=== PATIENT | male | born 1975 | race Caucasian/White ===

== ENCOUNTER 2023-05-25 15:48 | Outpatient (AMB) | payer OTHER, SELFPAY ==
[2023-05-25 15:51] VITALS: BP 122/76; PULSE 72; O2SAT 98; BMI 39.9
--- NOTE | 2023-05-25 15:51 | A.OFFPC_ITS ---
Vital Signs 05/25/23 15:51 Height 5 ft 10 in Weight 278 lb BMI 39.9 BP 122/76 Blood Pressure Location Rt brachial Position Sitting Pulse 72 Pulse Source Pulse Oximeter Pulse Oximetry (%) 98 Oxygen Delivery Method Room Air Intake Visit Reasons: Re establish care Intake Note: Pt is here today for PE. Allergies No Known Allergies [No Known Allergies*] Allergy (Unverified 05/25/23 15:53) Medication List - Last Reconciled 05/25/23 by DOUGLAS Salcedo-LILLIAM fluticasone propionate 50 mcg/actuation 1 spray intranasal DAILY Tobacco use date assessed: 05/25/23 Dental Screening Dental Screen Date: 05/25/23 Did you have a dental visit in the last 12 months?: Yes Did you have a dental problem in the last 6 months where you did not have access to dental care?: No Was dental information given to patient?: Patient has dentist HPI Re establish care HPI Details Pt is here for a PE. Will order labs. Due for colon screen, will refer to GI. Pt c/o left knee pain. He reports pain to the inside of his knee. Pt reports the most pain with bending or pivoting. Will order XR. [facility] Medical History (Updated 05/25/23 @ 16:24 by DOUGLAS Salcedo-LILLIAM) Fatty liver Family History Father Heart attack Mother No problems noted. Social History Housing: House Patient Tobacco Use Status: Never used Tobacco e-Cigarette/Vaping Use: Currently Using Current occupational status: employed Cognitive needs: No Hearing needs: No Vision needs: Yes Questionnaire PHQ-9 Over the last 2 weeks, how often have you been bothered by any of the following problems? 1. Little interest or pleasure in doing things: not at all 2. Feeling down, depressed, or hopeless: not at all 3. Trouble falling or staying asleep, or sleeping too much: not at all 4. Feeling tired or having little energy: not at all 5. Poor appetite or overeating: not at all 6. Feeling bad about yourself - or that you are a failure or have let yourself or your family down: not at all 7. Trouble concentrating on things, such as reading the newspaper or watching television: not at all 8. Moving or speaking so slowly that other people could have noticed. Or the opposite - being so fidgety or restless that you have been moving around a lot more than usual: not at all 9. Thoughts that you would be better off or of hurting yourself in some way: not at all Total score: 0 Depression Screening Interpretation: Negative Depression Screening Done: Yes Source: Developed by Drs. Stef Conner, Kate Moreira, Carlos Johnson and colleagues, with an educational adryan from [employer]. Thrive Questionnaire Date Thrive assessed: 05/25/23 I am a: Patient What is your living situation today?: I have a steady place to live Within the past 12 months, did the food you bought not last and you didn't have the money to get more?: Never true Within the past 12 months, did you worry whether your food would run out before you got money to buy more?: Never true Do you have trouble paying for medicines?: No Do you have trouble getting transportation to medical appointments?: No Do you have trouble paying your heating and electricity bill?: No Do you have trouble taking care of your child, family member or friend?: No Do you have trouble with day-to-day activities such as bathing, preparing meals, shopping, managing finances, etc.?: No Are you currently unemployed and looking for a job?: No Are you interested in more education?: No Please select the resources that you would like help with: None AUDIT C Alcohol Use Questionnaire (AUDIT-C) 1. How often do you have a drink containing alcohol?: Monthly or less 2. How many drinks containing alcohol do you have on a typical day when you are drinking?: 1 or 2 3. How often do you have six or more drinks on one occasion?: Never Total Score: 1 JASON-7 AMB Questionnaire JASON-7 Date JASON - 7 assessed: 05/25/23 Feeling nervous, anxious, or on edge: 0 = Not at all Not being able to stop or control worryin = Not at all Worrying too much about different things: 0 = Not at all Trouble relaxin = Not at all Being so restless that it is hard to sit still: 0 = Not at all Becoming easily annoyed or irritable: 1 = Several days Feeling afraid as if something awful might happen: 0 = Not at all Total JASON-7 score (0-4 normal; 5-9 mild; 10-14 moderate; 15-21 severe): 1 Source: Developed by Drs. Stef Conner, Kate Moreira, Carlos Jhonson and colleagues, with an educational adryan from [employer]. Review of Systems Const Denies chills and Denies fever(s) Eyes Denies blurry vision ENT Denies vertigo, Denies dizziness and Denies sore throat Card Denies chest pain at rest, Denies chest pain with activity, Denies diaphoresis, Denies dyspnea and Denies dyspnea on exertion Resp Denies cough, Denies dyspnea, Denies dyspnea on exertion and Denies wheezing GI Denies abdominal pain, Denies melena, Denies hematochezia, Denies constipation, Denies diarrhea and Denies loose stools Denies hematuria Musc Denies numbness and Denies tingling Skin/Breast Denies lesions Neuro Denies vertigo, Denies dizziness, Denies numbness and Denies tingling Psych Denies anxiety, Denies depression, Denies homicidal ideation, Denies suicidal ideation and Denies other (substance abuse) Aller/Immun Denies wheezing Physical exam (Primary Care) Vital Signs: Last Vital Signs Pulse 72 05/25/23 15:51 BP 122/76 05/25/23 15:51 Pulse Ox 98 05/25/23 15:51 Oxygen Delivery Method Room Air 05/25/23 15:51 BMI result Body Mass Index 39.9 Tobacco/Smoking Status: Tobacco use Status Tobacco use date assessed 05/25/23 05/25/23 15:58 Patient Tobacco Use Status Never used Tobacco 05/25/23 15:58 e-Cigarette/Vaping Use Currently Using 05/25/23 15:58 PHQ-9: PHQ-9 Score PHQ-9: Total score 0 05/25/23 16:38 Depression Screening Interpretation: Negative Thrive Assessment: Date of Thrive Assessment Date Thrive assessed 05/25/23 05/25/23 16:38 Const General: cooperative Nutritional Appearance: obese Orientation/consciousness: patient oriented x3 HENMT Head: Yes normal to inspection, Yes normocephalic and Yes atraumatic Ears: TM's normal bilaterally Eyes General: appearance normal, both eyes and all related structures Alignment and Position: alignment normal and position normal Neck Neck: Yes normal visual inspection and Yes no lymphadenopathy Thyroid: Thyroid normal Resp Effort & Inspection: normal respiratory effort Auscultation: clear to auscultation bilaterally Cardio Rate: regular rate Rhythm: regular rhythm Heart sounds: S1 normal heart sound present, S2 normal heart sound present and no murmurs GI Palpation (GI): Soft to palpation and nontender Auscultation: normal bowel sounds Male General Exam: Yes normal external exam Penis: normal penis Scrotum: scrotum normal, testes descended bilaterally and no inguinal hernias Testes: no testicular mass Skin Rashes: no rashes Neuro General: patient oriented x3, moves all extremities, no focal motor deficits and deep tendon reflexes 2+ bilaterally Romberg Test: Negative Extrem Other: left knee: - mcmurrays, - lachmans Psych Appearance: grossly normal Mental Status: mental status grossly normal Speech and movement: Normal speech and movement present Affect: normal affect Attitude: cooperative Thought process: Normal thought process present Thought content: Normal thought content present Insight: Good insight present (Psych) Judgement: Good judgement present (Psych) Assessment and Plan Assessment & Plan (1) Screening for colon cancer: Code(s): Z12.11 - Encounter for screening for malignant neoplasm of colon Plan: Referred to GI (2) Physical exam: Code(s): Z00.00 - Encounter for general adult medical examination without abnormal findings Plan: Labs ordered (3) Left knee pain: Code(s): M25.562 - Pain in left knee Plan: XR ordered Plan The patient agreed to the use of a medical records custodian for this encounter. Scribed for RUSSEL GarciaBC by Maddi Sepulveda medical records custodian, on 05/25/2023 at 16:15 EST. Orders: Orders Complete Blood Count Auto Diff Today Z00.00 - Encounter for general adult medical examination without abnormal findings UA CC w/rflx Micro + Cult Today Z00.00 - Encounter for general adult medical examination without abnormal findings Lipid Panel Today Z00.00 - Encounter for general adult medical examination without abnormal findings XR knee LT 2V Today M25.562 - Pain in left knee Comprehensive Stewardson. Panel Fast Today Z00.00 - Encounter for general adult medical examination without abnormal findings TSH reflex Free T4 Today Z00.00 - Encounter for general adult medical examination without abnormal findings Referrals Gastroenterology Referral Z12.11 - Encounter for screening for malignant neoplasm of colon Coding Level of Care Code New Pt Prev Care 40-64y(46818) Diagnoses Screening for colon cancer Z12.11 Physical exam Z00.00 Left knee pain M25.562
== END 2023-05-25 16:44 | disposition home or self-care (01) ==
PROVIDERS: PCP Nurse Practitioner Family; Visit Provider Nurse Practitioner Family
DX: Z12.11 Encounter for screening for malignant neoplasm of colon (principal); Z00.00 Encounter for general adult medical examination without abnormal findings; M25.562 Pain in left knee
CPT/HCPCS: 99386

== ENCOUNTER 2023-06-19 11:57 | Outpatient (REF) | payer OTHER, SELFPAY ==
--- NOTE | ~2023-06-19 | XR_ITS ---
EXAMINATION: XR KNEE, LEFT CLINICAL INFORMATION: Pain in left knee. COMPARISON: None available. TECHNIQUE: 2 views of the left knee. FINDINGS: Mild medial joint space narrowing. Trace joint effusion. Tiny tricompartmental osteophytes. Small quadriceps enthesophyte. XR/XR knee LT 2V IMPRESSION: Mild degenerative changes.
== END 2023-06-19 11:58 | disposition home or self-care (01) ==
LOC: HO.HMGCX 11:57
PROVIDERS: PCP Nurse Practitioner Family; Visit Provider Nurse Practitioner Family
DX: M25.562 Pain in left knee (principal)
CPT/HCPCS: 73560

== ENCOUNTER 2023-08-04 15:14 | Outpatient (AMB) | payer OTHER, SELFPAY ==
--- NOTE | 2023-08-04 15:22 | A.OFFVIS_ITS ---
Intake Vital Signs 08/04/23 15:26 Height 5 ft 10 in Weight 287 lb 0.67 oz BMI 41.2 BP 144/79 H Blood Pressure Location Lt brachial Position Sitting Pulse 66 Intake Visit Reasons: Colonoscopy screening Intake Note: Patient presents to in office visit today as a new patient for colonoscopy. CC:Patient with hx of diverticulosis. Allergies No Known Allergies [No Known Allergies*] Allergy (Verified 08/04/23 15:29) HPI Colonoscopy screening HPI Details 48-year-old male here for preprocedural meeting to discuss a screening colonoscopy. He is referred by Artem Trejo of [facility] primary care. PMX Fatty liver Left knee pain HISTORY of sigmoid diverticulitis with microperforation * SURGICAL HISTORY [place] teeth * ALLERGIES: NKDA * [employer] LABS: none since 2019 TODAY'S VISIT Will need to go for labs, Needs Wednesday appt. This will be his first colonoscopy. He denies any bowel or upper GI problems currently. He denies any cardiac or respiratory problems. No ID problems. There is no known FHX of crc or polyps. [facility] Medical History Perforation of sigmoid colon due to diverticulitis Fatty liver Surgical History No pertinent past surgical history Family History Father Heart attack Mother No problems noted. Social History Housing: House Patient Tobacco Use Status: Never used Tobacco e-Cigarette/Vaping Use: Currently Using Current occupational status: employed Cognitive needs: No Hearing needs: No Vision needs: Yes Review of Systems Const Denies fatigue, Denies fever(s), Denies night sweats, Denies poor appetite and Denies weight loss ENT Reports Normal hearing present, Denies dental pain, Denies dysphagia, Denies hearing loss, Denies mouth pain, Denies odynophagia, Denies throat swelling, Denies tongue swelling and Reports other (Dentition adequate) Card Reports no additional complaints Resp Reports no additional complaints GI Details: Denies abdominal pain, Denies melena, Denies bloating, Denies hematochezia, Denies constipation, Denies GI cramping, Denies dysphagia, Denies excessive flatus, Denies early satiety, Denies heartburn, Denies diarrhea, Denies nausea, Denies odynophagia, Denies vomiting and Denies hematemesis Skin/Breast Denies pruritus, Denies lesions, Denies rash and Denies jaundice Neuro Reports Normal hearing present and Denies Abnormal speech present Endo Denies fatigue Aller/Immun Denies throat swelling and Denies tongue swelling Physical Exam Vital Signs: Last Vital Signs Pulse 66 08/04/23 15:26 BP 144/79 H 08/04/23 15:26 BMI result Body Mass Index 41.2 Const General: cooperative, no acute distress, well developed and well groomed Nutritional Appearance: well nourished and obese centrally obese Orientation/consciousness: oriented to person, oriented to place and oriented to time Limitations: No language barrier HEENT Head: Yes normocephalic and Yes atraumatic Eyes General: appearance normal, both eyes and all related structures Pupils: Equal, round and reactive pupils present Neck Neck: Yes normal visual inspection and Yes no lymphadenopathy Thyroid: Thyroid normal Resp Effort & Inspection: normal respiratory effort and able to speak in complete sentences Auscultation: clear to auscultation bilaterally Cardio Rate: regular rate Rhythm: regular rhythm Heart sounds: Normal, physiologic split S2 sound present Peripheral pulses: radial pulses present and posterior tibial pulses present GI Inspection: No distended, Yes Abdominal panniculus present, Yes obesity and Yes striae Palpation (GI): Soft to palpation, nontender, no guarding, not rigid and No hepatosplenomegaly present Percussion: Yes normal to percussion Auscultation: normal bowel sounds Rectal Exam - Male: Yes deferred Skin General skin exam: no rashes or lesions noted, turgor normal, skin not dry, no jaundice, No spider nevi and no striae Rashes: no rashes Nails: normal Neuro General: oriented to person, oriented to place and oriented to time Cranial nerves: Yes Equal, round and reactive pupils present and Yes Normal hearing present Speech: No Abnormal speech present Extrem General: Yes normal to inspection, No clubbing, No cyanosis and No edema Psych Appearance: grossly normal and well kempt Mental Status: mental status grossly normal Speech and movement: Normal speech and movement present Affect: normal affect Attitude: cooperative Thought process: Normal thought process present and not confabulating Thought content: Normal thought content present Insight: Good insight present (Psych) Judgement: Good judgement present (Psych) Assessment & Plan Assessment & Plan (1) Pre-op examination: Code(s): Z01.818 - Encounter for other preprocedural examination Plan Will need to go for labs, Needs Wednesday appt. This will be his first colonoscopy. He denies any bowel or upper GI problems currently. He denies any cardiac or respiratory problems. No ID problems. There is no known FHX of crc or polyps. Orders: Orders Comprehensive Met. Panel Today Z01.818 - Encounter for other preprocedural examination Complete Blood Count Auto Diff Today Z01.818 - Encounter for other preprocedural examination Colonoscopy - GI Use Only Today Z01.818 - Encounter for other preprocedural examination Medications: New peg 3350-electrolytes 236-22.74-6.74 -5.86 gram (Golytely) until fecal effluent is clear; do not exceed a total volume of 2,000 mL 240 mL PO Q10M 4,000 mL 0RF 1 day Z12.11 - Encounter for screening for malignant neoplasm of colon bisacodyl (Dulcolax (bisacodyl)) 10 mg (2 x 5 mg) PO BEDTIME 4 tabs 0RF 2 days Coding Level of Care Code New Pt Level 3 (33986) Diagnoses Pre-op examination Z01.818
[2023-08-04 15:26] VITALS: BP 144/79; PULSE 66; BMI 41.2
== END 2023-08-04 16:01 | disposition home or self-care (01) ==
PROVIDERS: PCP Nurse Practitioner Family; Referring Provider Nurse Practitioner Family; Visit Provider Nurse Practitioner
DX: Z01.818 Encounter for other preprocedural examination (principal)
CPT/HCPCS: 99203

== ENCOUNTER → 2023-08-04 15:14 | Outpatient (BNVA) | payer OTHER, SELFPAY | PROVIDERS: PCP Nurse Practitioner Family; Referring Provider Nurse Practitioner Family; Visit Provider Nurse Practitioner | DX: Z01.818 Encounter for other preprocedural examination (principal) | CPT/HCPCS: 99202 ==

== ENCOUNTER 2023-08-07 09:33 | Outpatient (REF) | payer OTHER, SELFPAY ==
[2023-08-07 11:06] LABS: MANUAL DIFF FLAG NO
[2023-08-07 11:15] LABS: Basophils Absolute Auto 0.1 X10*3/uL (0.0-0.2); Basophils Percent Auto 1.2 % (0-2); Eosinophils Absolute Auto 0.5 X10*3/uL (0.0-0.4); Hematocrit 43.5 % (42.0-52.0); Hemoglobin 14.3 g/dl (14.0-18.0); Imm Gran Abs Auto 0.03 X10*3/uL (0.00-0.03); Imm Gran Pct Auto 0.3 % (0.0-0.4); Lymphocytes Absolute Auto 2.7 X10*3/uL (1.2-4.9); Lymphocytes Percent Auto 29.7 % (20-40); Mean Corpuscular HGB Conc 32.9 g/dl (31.0-36.0); Mean Corpuscular Hemoglobin 29.7 pg (27.0-33.0); Mean Corpuscular Volume 90.4 fL (80.0-98.0); Mean Platelet Volume 10.6 fL (9.4-12.4); Monocytes Absolute Auto 0.6 X10*3/uL (0.1-1.2); Monocytes Percent Auto 6.4 % (2-11); Neutrophils Absolute Auto 5.2 x10*3/uL (2.0-8.3); Neutrophils Percent Auto 57.4 % (45-73); Platelet Count 323 X10*3/uL (160-400); Red Blood Count 4.81 X10*6/uL (4.60-5.80); Red Cell Distribution Width 13.4 % (11.0-16.0); White Blood Count 9.1 X10*3/uL (4.8-10.8)
[2023-08-07 11:27] LABS: Alanine Aminotransferase 18 U/L (0-40); Albumin Level 4.3 g/dL (3.5-5.0); Alkaline Phosphatase 69 U/L (39-117); Anion Gap 12 (12-20); Aspartate Amino Transferase 15 U/L (5-37); Bilirubin Total 0.4 mg/dL (0.0-1.0); Blood Urea Nitrogen 15 mg/dL (9-16); Carbon Dioxide 25 mmol/L (22-29); Chloride 107 mmol/L (96-108); Cholesterol 223 mg/dL (<200); Estimated Glomerular Filt Rate > 60; Glucose Fasting 97 mg/dL (60-99); Glucose Random 97 mg/dL (60-115); HDL Cholesterol 53 mg/dL (>40); LDL Cholesterol Calculated 160 mg/dL (<100); Potassium 4.2 mmol/L (3.3-5.1); Sodium 140 mmol/L (135-145); Total Protein 7.3 g/dL (6.5-8.0); Triglycerides 50 mg/dL (<150)
[2023-08-07 11:44] LABS: TSH reflex Free T4 3.36 uIU/mL (0.32-4.0)
== END 2023-08-07 09:34 | disposition home or self-care (01) ==
LOC: HO.HMGCLDS 09:33
PROVIDERS: Nurse Practitioner; PCP Nurse Practitioner Family; Visit Provider Nurse Practitioner Family
DX: Z01.818 Encounter for other preprocedural examination (principal)
CPT/HCPCS: 36415; 80053; 80061; 84443; 85025

== ENCOUNTER 2023-10-27 16:00 | Outpatient (RCR) | payer OTHER, SELFPAY ==
--- NOTE | 2023-09-15 17:25 | MHC.PT.EP ---
[facility] [place] Office [place] Office [place] Office [address] [phone] F: [phone] F: [phone] F: [phone] F: [phone] Physical Therapy Plan of Care Date of Evaluation: 09/15/23 Date of Surgery: Diagnosis: LEFT knee pain Assessment: Patient is a pleasant 48 y.o. male who is referred to PT by DOUGLAS Garcia with Dx of LEFT knee pain. His x-ray imaging shows, mild medial joint space narrowing. Trace joint effusion. Tiny tricompartmental osteophytes. Small quadriceps enthesophyte. Patient impairments include weakness in L glutes, tightness in L ankle DF, antalgic gait with compensations, limited ROM in knee. Patient current functional limitations are Prolonged walking, walking outdoors, prolonged standing, pain lying on his side, stair use. Patient will benefit from skilled PT to address aforementioned impairments and functional limitations to meet established goals. Frequency and Duration: The patient will be seen 1-2x/week for 4 weeks Short Term Goals: 2 weeks Patient demonstrates consistency and independence with HEP to self manage symptoms. Patient demonstrates increased L ankle DF 5 degrees to normalize gait pattern. Restrictive Preparation Operator Goals: 4 weeks Patient presents with increased glute med strength 5/5 to be able to perform sit to stand with good lowering and control without pain. Patient presents with increased L knee flexion and extension 5/5 to be able to perform reciprocal stairs. Treatment Plan: Modalities to reduce pain, spasms and effusion. Manual therapy to restore motion and function. Therapeutic exercise to improve strength and flexibility. Neuromuscular re-education for posture and balance. Therapeutic activities to return to functional activities of daily living. Electronically signed by: Verónica Peterson, PT, DPT Please sign and return to therapist. Thank you for your referral.
--- NOTE | 2023-12-09 09:44 | MHC.PT.DC ---
[facility] [place] Office [place] Office [place] Office [address] [phone] F: [phone] F: [phone] F: [phone] F: [phone] Physical Therapy Discharge Report Diagnosis: LEFT knee pain Date of Surgery: Date of Evaluation: 09/15/23 Date of Discharge: 12/09/23 Treatments to Date: 5 Cancellations to Date: 3 No Shows to Date: 0 Discharge Status: Improved Function Independent with HEP Patient Elected to Stop Discharge Summary: Valente was seen for 5 visits and demonstrated independence with HEP and noted improvement in his knee pain. He is discharged because he cancelled his last scheduled PT visits. His last visit on 10/27/23 the assessment reads, He reports he did get orthotics for his shoes for arch support but did not do a wearing schedule to break them in. Unsure if this could've caused more pain. He shows weakness still in glute on L as he has Trendelenberg gait with trunk compensation. He reports relief in knee sxs after doing exercise program focused on glutes. He reports wanting to commit to consistent HEP and will be seen 1x/week in 2 weeks to discuss progress. Electronically signed by: Verónica Peterson, PT, DPT Please sign and return to therapist. Thank you for your referral.
== END 2023-12-09 09:44 | disposition home or self-care (01) ==
LOC: HO.PT 16:00
PROVIDERS: PCP Nurse Practitioner Family; Visit Provider Nurse Practitioner Family
DX: M25.562 Pain in left knee (principal)
CPT/HCPCS: 97110; 97161; 97530

== ENCOUNTER 2023-11-27 07:21 | Outpatient (REF) | payer OTHER, SELFPAY ==
[2023-11-27 11:27] LABS: Alanine Aminotransferase 19 U/L (0-40); Albumin Level 4.3 g/dL (3.5-5.0); Alkaline Phosphatase 62 U/L (39-117); Anion Gap 14 (12-20); Aspartate Amino Transferase 18 U/L (5-37); Bilirubin Total 0.5 mg/dL (0.0-1.0); Blood Urea Nitrogen 16 mg/dL (9-16); Calcium 8.9 mg/dL (8.4-10.2); Carbon Dioxide 25 mmol/L (22-29); Chloride 108 mmol/L (96-108); Cholesterol 142 mg/dL (<200); Estimated Glomerular Filt Rate > 60; Glucose Fasting 99 mg/dL (60-99); HDL Cholesterol 47 mg/dL (>40); LDL Cholesterol Calculated 83 mg/dL (<100); Potassium 4.7 mmol/L (3.3-5.1); Sodium 142 mmol/L (135-145); Total Protein 7.2 g/dL (6.5-8.0); Triglycerides 64 mg/dL (<150)
== END 2023-11-27 07:22 | disposition home or self-care (01) ==
LOC: HO.HMGCLDS 07:21
PROVIDERS: PCP Nurse Practitioner Family; Visit Provider Nurse Practitioner Family
DX: E78.5 Hyperlipidemia, unspecified (principal)
CPT/HCPCS: 36415; 80053; 80061

== ENCOUNTER 2024-05-29 15:47 | Outpatient (AMB) | payer OTHER, SELFPAY ==
[2024-05-29 15:50] VITALS: BP 138/78; PULSE 73; O2SAT 98; BMI 41.3
--- NOTE | 2024-05-29 15:50 | A.OFFPC_ITS ---
Vital Signs 05/29/24 15:50 Height 5 ft 10 in Weight 288 lb BMI 41.3 BP 138/78 Blood Pressure Location Rt brachial Position Sitting Pulse 73 Pulse Source Pulse Oximeter Pulse Oximetry (%) 98 Oxygen Delivery Method Room Air Intake Visit Reasons: PE Intake Note: pt is here for PE Facilitator Required: No Accompanied by: Self / Same As Patient Allergies No Known Allergies [No Known Allergies*] Allergy (Verified 05/29/24 16:26) Medication List - Last Reconciled 05/29/24 by DOUGLAS Salcedo-LILLIAM atorvastatin 10 mg PO BEDTIME fluticasone propionate 50 mcg/actuation 1 spray intranasal DAILY Tobacco use date assessed: 05/29/24 Dental Screening Dental Screen Date: 05/29/24 Did you have a dental visit in the last 12 months?: Yes Did you have a dental problem in the last 6 months where you did not have access to dental care?: No Was dental information given to patient?: Patient has dentist HPI PE HPI Details History of Present Illness The patient is a 49-year-old male presenting with bilateral knee pain, more severe in the right knee than the left. The left knee was previously evaluated and imaging displayed degenerative changes consistent with osteoarthritis. The patient underwent a course of physical therapy which provided partial relief of symptoms. The worsening condition of the right knee has prompted further evaluation, with a plan to obtain additional imaging studies. The patient reports contacting a gastroenterology office to complete a colon cancer screening; however, the appointment has not been scheduled. The patient demonstrates an interest in preventive health, as evidenced by his attempts to adhere to recommended screenings such as the colonoscopy. Overall, during the review of systems, the patient denies any associated systemic symptoms such as edema, chest pain, shortness of breath, or gastrointestinal and neurological symptoms. Health Maintenance - Attempted to obtain colonoscopy for co lorectal cancer screening, sent a note to GI to contact pt. - Underwent physical therapy for managem ent of knee osteoarthritis. Social History Review of Systems - Cardiovascular: Denies chest pain. - Respiratory: Denies shortness of breat h. - Gastrointestinal: Denies constipation and diarrhea. - Neurologic: Denies numbness and tingli ng. - Psychiatric: Denies anxiety, depressio n, suicidal ideation, and homicidal ideation. - Genitourinary: Denies urinary symptoms . Physical Exam General: Cooperative, healthy appearing, comfortable, no acute distress and well developed, obese Orientation: Patient oriented x3 Limitations: No limitations Head: Normal to inspection Ears: Hearing grossly normal bilaterally Nose: Normal external nose present Face and sinus: Normal facial exam Eyes: Appearance normal, both eyes and all related structures Neck: Normal visual inspection and Yes full ROM Respiratory: Normal respiratory effort and able to speak in complete sentences. Clear to auscultation bilaterally Cardiovascular: Regular rate and rhythm. Normal S1 and S2 : no testicular lesions, no penile lesions, no hernias noted GI: Normal to inspection. Soft to palpation and nontender Skin: No rashes or lesions noted Neuro: Patient oriented x3 Extremities: crepitus noted bilat knees R>L. neg lachmans, neg mccmurrays Results - Previous knee x-ray indicated degenera tive changes. Plan - Obtain x-ray imaging of right knee to assess degenerative changes more thoroughly. - Refer the patient to ortho for further evaluation and management of knee osteoarthritis. - Note to gastroenterology to contact [facility] patient regarding scheduling a colonoscopy. Patient was informed and verbally consented to the use of an ambient scribe for clinic note documentation during this visit. Discussion Notes During the visit, I explained to the patient the findings from the prior knee x- ray indicating degenerative changes, likely due to osteoarthritis. The patient was advised on the importance of obtaining updated imaging of the right knee to assist in planning further management and potential referral to an dot compliance specialist. I discussed the significance of completing a colonoscopy for colorectal cancer screening, emphasizing the role it plays in preventive health care. I directed a note to the gastroenterology office to facilitate scheduling of the procedure. The patient was encouraged regarding lifestyle modifications to potentially alleviate obesity and enhance overall joint health. Follow-up discussions focused on expectations from the knee x-ray and anticipated referral outcomes. Patient Instructions - Follow up with the gastroenterology of [facility] to ensure scheduling of your colonoscopy. - Await contact regarding knee x-ray res ults and subsequent referral to ortho - Continue prescribed physical therapy e xercises for knee. - Monitor your symptoms, and report any exacerbation of pain or new symptoms. [facility] Medical History Perforation of sigmoid colon due to diverticulitis Fatty liver Surgical History No pertinent past surgical history Family History Father Heart attack Mother No problems noted. Social History Housing: House Patient Tobacco Use Status: Never used Tobacco e-Cigarette/Vaping Use: Currently Using Current occupational status: employed Cognitive needs: No Hearing needs: No Vision needs: Yes Questionnaire PHQ-9 Over the last 2 weeks, how often have you been bothered by any of the following problems? 1. Little interest or pleasure in doing things: not at all 2. Feeling down, depressed, or hopeless: not at all 3. Trouble falling or staying asleep, or sleeping too much: not at all 4. Feeling tired or having little energy: not at all 5. Poor appetite or overeating: not at all 6. Feeling bad about yourself - or that you are a failure or have let yourself or your family down: not at all 7. Trouble concentrating on things, such as reading the newspaper or watching television: not at all 8. Moving or speaking so slowly that other people could have noticed. Or the opposite - being so fidgety or restless that you have been moving around a lot more than usual: not at all 9. Thoughts that you would be better off or of hurting yourself in some way: not at all Total score: 0 Depression Screening Interpretation: Negative Depression Screening Done: Yes 44201 - PHQ-9 Billing: Yes Source: Developed by Drs. Stef Conner, Kate Moreira, Carlos Johnson and colleagues, with an educational adryan from [employer]. Thrive Questionnaire Date Thrive assessed: 05/29/24 I am a: Patient What is your living situation today?: I have a steady place to live Within the past 12 months, did the food you bought not last and you didn't have the money to get more?: Never true Within the past 12 months, did you worry whether your food would run out before you got money to buy more?: Never true Do you have trouble paying for medicines?: No Do you have trouble getting transportation to medical appointments?: No Do you have trouble paying your heating and electricity bill?: No Do you have trouble taking care of your child, family member or friend?: No Do you have trouble with day-to-day activities such as bathing, preparing meals, shopping, managing finances, etc.?: No Are you currently unemployed and looking for a job?: No Are you interested in more education?: No Please select the resources that you would like help with: None Currently or been in a relationship where the following occur: No concerns reported THRIVE Score: 0 AUDIT C Alcohol Use Questionnaire (AUDIT-C) 1. How often do you have a drink containing alcohol?: Monthly or less 2. How many drinks containing alcohol do you have on a typical day when you are drinking?: 1 or 2 3. How often do you have six or more drinks on one occasion?: Never Total Score: 1 Score Reviewed/Action Taken: Yes JASON-7 AMB Questionnaire JASON-7 Date JASON - 7 assessed: 05/29/24 Feeling nervous, anxious, or on edge: 0 = Not at all Not being able to stop or control worryin = Not at all Worrying too much about different things: 0 = Not at all Trouble relaxin = Not at all Being so restless that it is hard to sit still: 0 = Not at all Becoming easily annoyed or irritable: 0 = Not at all Feeling afraid as if something awful might happen: 0 = Not at all Total JASON-7 score (0-4 normal; 5-9 mild; 10-14 moderate; 15-21 severe): 0 Source: Developed by Drs. Stef Conner, Kate Moreira, Carlos Johnson and colleagues, with an educational adryan from [employer]. JASON-7 Assessment Billing JASON-7 Assessment Tool: JASON-7 Assessment 70039 Physical exam (Primary Care) Vital Signs: Last Vital Signs Pulse 73 05/29/24 15:50 BP 138/78 05/29/24 15:50 Pulse Ox 98 05/29/24 15:50 Oxygen Delivery Method Room Air 05/29/24 15:50 BMI result Body Mass Index 41.3 Tobacco/Smoking Status: Tobacco use Status Tobacco use date assessed 05/29/24 05/29/24 15:52 Patient Tobacco Use Status Never used Tobacco 05/29/24 15:52 e-Cigarette/Vaping Use Currently Using 05/29/24 15:52 PHQ-9: PHQ-9 Score PHQ-9: Total score 0 05/29/24 15:52 Depression Screening Interpretation: Negative Thrive Assessment: Date of Thrive Assessment Date Thrive assessed 05/29/24 05/29/24 15:52 Currently or been in a relationship where the following occur: No concerns reported Coding Level of Care Code Est Pt Prev Care 40-64y(66443) Diagnoses Physical exam Z00.00 Screening for prostate cancer Z12.5 Chronic knee pain M25.569; G89.29 Additional Codes JASON-7 Assessment Billing - JASON-7 Assessment Tool: JASON-7 Assessment [id number] ([id number]) PHQ-9 - 09367 - PHQ-9 Billing: Yes ([id number]) Assessment & Plan Assessment & Plan (1) Physical exam: Code(s): Z00.00 - Encounter for general adult medical examination without abnormal findings Category: Medical (2) Screening for prostate cancer: Code(s): Z12.5 - Encounter for screening for malignant neoplasm of prostate Category: Medical (3) Chronic knee pain: Code(s): M25.569 - Pain in unspecified knee; G89.29 - Other chronic pain Category: Medical Plan . Orders: Orders TSH reflex Free T4 Today Z00.00 - Encounter for general adult medical examination without abnormal findings UA CC w/rflx Micro + Cult Today Z00.00 - Encounter for general adult medical examination without abnormal findings Prostate Specific Antigen Scr Today Z12.5 - Encounter for screening for malignant neoplasm of prostate Complete Blood Count Auto Diff Today Z00.00 - Encounter for general adult medical examination without abnormal findings Comprehensive Barney. Panel Fast Today Z00.00 - Encounter for general adult medical examination without abnormal findings Lipid Panel Today Z00.00 - Encounter for general adult medical examination without abnormal findings XR knee RT 2V Today G89.29 - Other chronic pain, M25.569 - Pain in unspecified knee Referrals Orthopedics Referral G89.29 - Other chronic pain, M25.569 - Pain in unspecified knee
== END 2024-05-29 16:23 | disposition home or self-care (01) ==
PROVIDERS: PCP Nurse Practitioner Family; Visit Provider Nurse Practitioner Family
DX: Z00.00 Encounter for general adult medical examination without abnormal findings (principal); Z12.5 Encounter for screening for malignant neoplasm of prostate; M25.569 Pain in unspecified knee; G89.29 Other chronic pain

== ENCOUNTER → 2024-05-29 15:47 | Outpatient (BNVA) | payer OTHER, SELFPAY | PROVIDERS: PCP Nurse Practitioner Family; Visit Provider Nurse Practitioner Family | DX: Z00.00 Encounter for general adult medical examination without abnormal findings (principal); M25.561 Pain in right knee; M25.562 Pain in left knee; G89.29 Other chronic pain; Z12.5 Encounter for screening for malignant neoplasm of prostate | CPT/HCPCS: 96127; 99396 ==

== ENCOUNTER 2024-06-29 15:04 | Outpatient (AMB) | payer OTHER, SELFPAY ==
[2024-06-29 15:23] VITALS: BMI 41.3
--- NOTE | 2024-06-29 15:23 | MHC.OFFVIS ---
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 Patient reports his pain has been present for over a year. States an x-ray of his left knee showed arthritis. Currently his right knee is the worse. His pain is located mostly at the medial aspect as well as the anterior aspect of knee. His pain increases with stair use and holding heavy objects. States clicking with bending his knees and shooting pains. His knees ache at night. Finds relief with use of knee sleeve, wormwood patches and warm compresses. He will take Tylenol or Advil if his pain becomes intolerable. 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 He states the pain has been present for little over a year. He was seen by his primary care doctor a while ago who ordered physical therapy for the left knee which he has been doing and notice some relief initially. He has some discomfort with prolonged walking stairs and getting up from a seated position. No recent injuries. PENDING SALE TO [facility] Medical History Perforation of sigmoid colon due to diverticulitis Fatty liver Surgical History No pertinent past surgical history Family History Father Heart attack Mother No problems noted. Social History (Updated 06/29/24 @ 15:25 by MIRYAM Dumont) Housing: House Patient Tobacco Use Status: Never used Tobacco e-Cigarette/Vaping Use: Currently Using Current occupational status: employed Current occupation: van cdl driver, cnc milling machinist Cognitive needs: No Hearing needs: No Vision needs: Yes Review of Systems Const All systems reviewed & are unremarkable except as noted in HPI and below Physical Exam Vital Signs: BMI result Body Mass Index 41.3 Const General: cooperative and no acute distress Orientation/consciousness: patient oriented x3 Resp Effort & Inspection: normal respiratory effort and able to speak in complete sentences Cardio Peripheral pulses: Peripheral pulses 2+ throughout Neuro General: patient oriented x3 Extrem Other: Left knee skin intact, no erythema or joint effusion. Tenderness along the medial joint line. ROM full with crepitus. Negative steinmans. No ligamentous laxity. NVI. Right knee skin intact, no erythema or joint effusion. Lateral retropatellar tenderness present with medial joint line tenderness.. ROM full with crepitus. Negative steinmans. No ligamentous laxity. NVI. Results Reviewed Results Reviewed: Xrays were obtained in the office today and personally reviewed by me of bil knee show oa Assessment & Plan Assessment & Plan (1) Patellofemoral arthralgia of both knees: Code(s): M22.2X1 - Patellofemoral disorders, right knee; M22.2X2 - Patellofemoral disorders, left knee Category: Medical Plan: We discussed options today which include physical therapy and steroid injections. He would like to hold off on injections at this time. He will begin a course of physical therapy for bilateral knees and if symptoms persist or worsen he will contact our office to discuss injections otherwise follow-up as needed. Orders: Orders XR knee LT 3V 06/29/24 M25.562 - Pain in left knee PT Evaluation and Treatment 06/29/24 M22.2X1 - Patellofemoral disorders, right knee, M22.2X2 - Patellofemoral disorders, left knee XR knee RT 3V 06/29/24 M17.11 - Unilateral primary osteoarthritis, right knee Coding Level of Care Code New Pt Level 3 (15515) Complex EM visit Add On G2211 Diagnoses Patellofemoral arthralgia of both knees M22.2X1; M22.2X2
== END 2024-06-29 16:26 | disposition home or self-care (01) ==
PROVIDERS: PCP Nurse Practitioner Family; Visit Provider Physician Assistant
DX: M22.2X1 Patellofemoral disorders, right knee (principal); M22.2X2 Patellofemoral disorders, left knee
CPT/HCPCS: 99203; G2211

== ENCOUNTER → 2024-06-29 15:13 | Outpatient (BNV) | payer OTHER, SELFPAY | PROVIDERS: Visit Provider Radiology Diagnostic Radiology | DX: M17.0 Bilateral primary osteoarthritis of knee (principal) | CPT/HCPCS: 73562 ==